=== PATIENT | male | born 1950 | race Caucasian/White ===

== ENCOUNTER 2016-08-02 12:21 | Outpatient (CLI) | payer OTHER | END 2016-08-02 12:22 | disposition home or self-care (01) | DX: E11.9 Type 2 diabetes mellitus without complications (principal) ==

== ENCOUNTER 2017-10-06 12:53 | Outpatient (CLI) | payer OTHER ==
--- NOTE | 2017-10-06 13:36 | XRAY Report ---
Procedure Date: 10/06/2017 Accession Number: [id number] / [id number] Procedure: XR - Shoulder 3 View RT CPT Code: FULL RESULT: EXAM: Shoulder 3 View RT DATE: 10/06/2017 1:15 PM CLINICAL HISTORY: PAIN AFTER FALL COMPARISON: None. TECHNIQUE: 3 views. FINDINGS: Bones: No fracture or bone lesion. Joints: The glenohumeral and acromioclavicular joints are anatomically aligned. Mild degenerative change glenohumeral and acromioclavicular articulation. Soft tissues: The included hemithorax is unremarkable. No soft tissue calcification. IMPRESSION: Degenerative change right shoulder without superimposed acute findings RADIA
== END 2017-10-06 12:54 | disposition home or self-care (01) ==
LOC: DI 12:53
PROVIDERS: ATTEND Internal Medicine
DX: M19.011 Primary osteoarthritis, right shoulder (principal)

== ENCOUNTER 2018-08-03 18:12 | Outpatient (CLI) | payer OTHER ==
[2018-08-03 18:26] LABS: BASOPHILS # (AUTO) 0.1 10^3/uL (0.0-0.1); BASOPHILS % (AUTO) 1.1 %; EOSINOPHILS # (AUTO) 0.6 10^3/uL (0.0-0.7); EOSINOPHILS % (AUTO) 4.3 %; HGB - HEMOGLOBIN 14.1 g/dL (14.0-18.0); LYMPHOCYTES # (AUTO) 2.8 10^3/uL (1.5-3.5); LYMPHOCYTES % (AUTO) 21.7 %; MEAN CORPUSCULAR HEMOGLOBIN 29.1 pg (27.0-31.0); MEAN CORPUSCULAR HGB CONC 32.3 g/dL (32.0-36.0); MEAN PLATELET VOLUME 9.4 fL (7.4-11.4); MONOCYTES # (AUTO) 0.9 10^3/uL (0.0-1.0); MONOCYTES % (AUTO) 6.6 %; NEUTROPHILS # (AUTO) 8.5 10^3/uL (1.5-6.6); NEUTROPHILS % (AUTO) 66.3 %; PLT - PLATELET COUNT 168 10^3/uL (130-450); RED BLOOD COUNT 4.85 10^6/uL (4.70-6.10); RED CELL DISTRIBUTION WIDTH 15.6 % (12.0-15.0); WHITE BLOOD COUNT 12.9 x10^3/uL (4.8-10.8)
[2018-08-03 18:36] LABS: ALBUMIN 4.3 g/dL (3.2-5.5); ALBUMIN/GLOBULIN RATIO 1.6 (1.0-2.2); BILIRUBIN,TOTAL 0.5 mg/dL (0.2-1.0); CALCIUM 9.1 mg/dL (8.5-10.3); CREATININE 1.1 mg/dL (0.6-1.2)
[2018-08-03 18:48] LABS: HB2 TOTAL 15.4 g/dL; HEMOGLOBIN A1C 0.57 g/dL; HEMOGLOBIN A1C % 5.5 % (4.6-6.2)
== END 2018-08-03 18:13 | disposition home or self-care (01) ==
LOC: LAB 18:12
PROVIDERS: ATTEND Orthopaedic Surgery Sports Medicine
DX: E11.9 Type 2 diabetes mellitus without complications (principal); Z79.899 Other long term (current) drug therapy
CPT/HCPCS: 36415; 80053; 83036; 85025

== ENCOUNTER 2018-08-16 11:56 | Outpatient (CLI) | payer OTHER ==
--- NOTE | 2018-08-17 15:30 | XRAY Report ---
Reason: EXPOSURE TO ASBESTOS Procedure Date: 08/16/2018 Accession Number: [id number] / [id number] Procedure: XR - Chest 2 View X-Ray CPT Code: 94801 FULL RESULT: EXAM: CHEST RADIOGRAPHY EXAM DATE: 08/16/2018 12:36 PM. CLINICAL HISTORY: History of asbestos exposure. COMPARISON: None. TECHNIQUE: 2 views. FINDINGS: Lungs/Pleura: No focal opacities evident. No pleural effusion. No pneumothorax. Normal volumes. No pleural calcifications are detected. Mediastinum: Heart and mediastinal contours are unremarkable. Other: None. IMPRESSION: No pleural calcifications or large lung mass. RADIA
== END 2018-08-16 11:57 | disposition home or self-care (01) ==
LOC: DI 11:56
PROVIDERS: ATTEND Internal Medicine
DX: Z77.090 Contact with and (suspected) exposure to asbestos (principal)
CPT/HCPCS: 71046

== ENCOUNTER 2018-08-22 11:30 | Day surgery (SDC) | payer OTHER ==
[~2018-08-22 11:30] MED LIST: BUPIVACAINE 0.25%-EPI 1:200000 PF 30 ML VIAL ONE; EPINEPHrine 1 MG/ML AMP ONE
[2018-08-22] MEDS ORDERED: LACTATED RINGERS 1,000 ML IV ONE ×2 (11:33→11:35)
--- NOTE | 2018-08-22 12:04 | ANESTHESIA ---
Pre-Anesthesia VS, & Labs - Diagnosis right rotator cuff tear - Procedure right shoulder arthroscopy with rotator cuff repair, subacromial decompression Vital Signs: Temp Pulse Resp BP Pulse Ox 36.9 C 72 14 109/76 99 08/22/18 11:35 08/22/18 11:35 08/22/18 11:35 08/22/18 11:35 08/22/18 11:35 Height 6 ft 3 in Weight (kg) 143.2 kg Body Mass Index 42.3 - NPO >8 hours - Lab Results Current Lab Results: Laboratory Tests 08/22/18 11:57: POC Whole Bld Glucose 92 Home Medications and Allergies Home Medications: Ambulatory Orders Aspirin 0.5 tab PO DAILY 08/13/18 Cyanocobalamin (Vitamin B-12) [Vitamin B-12 (1000 mcg sublingual)] 1,000 mcg SL DAILY 08/13/18 Escitalopram Oxalate 10 mg PO DAILY 08/13/18 Febuxostat [Uloric] 40 mg PO DAILY 08/13/18 Ibuprofen [Motrin] 800 mg PO Q8H PRN 08/13/18 Mineral Oil/Petrolatum,White [Hydrocerin Cream] 1 applic TP ONCE 08/13/18 Trazodone HCl 50 mg PO QPM 08/13/18 Active Medications Cefazolin Sodium 3 gm/ Sodium (Chloride) 100 mls @ 200 mls/hr IV ONCE ONE Stop: 08/22/18 12:59 Ascorbic Acid [Vitamin C] 1,000 mg PO BID 04/09/15 Atorvastatin [Lipitor] 40 mg PO QPM 04/09/15 Cholecalciferol (Vitamin D3) [Vitamin D3] 2,000 unit PO DAILY 04/09/15 Gabapentin 900 mg PO TID 04/09/15 Insulin Glargine,Hum.rec.anlog [Lantus] 120 unit SQ BID 04/09/15 Lisinopril 20 mg PO DAILY 04/09/15 metFORMIN [Glucophage] 500 mg PO BIDWM 04/09/15 Aspirin 0.5 tab PO DAILY 08/13/18 Cyanocobalamin (Vitamin B-12) [Vitamin B-12 (1000 mcg sublingual)] 1,000 mcg SL DAILY 08/13/18 Escitalopram Oxalate 10 mg PO DAILY 08/13/18 Febuxostat [Uloric] 40 mg PO DAILY 08/13/18 Ibuprofen [Motrin] 800 mg PO Q8H PRN 08/13/18 Mineral Oil/Petrolatum,White [Hydrocerin Cream] 1 applic TP ONCE 08/13/18 Trazodone HCl 50 mg PO QPM 08/13/18 Allergies/Adverse Reactions: Allergies Allergy/AdvReac Type Severity Reaction Status Date / Time allopurinol Allergy Unknown Verified 08/13/18 15:16 benzoin Allergy Rash Verified 08/13/18 15:16 Anes History & Medical History - Anesthetic History Anesthesia Complications: reports: No previous complications Family history of Anesthesia Complications: Denies Family history of Malignant Hyperthermia: Denies - Medical History Cardiovascular: reports: Hypertension, High cholesterol Pulmonary: reports: Other Gastrointestinal: reports: Hepatitis Urinary: reports: None Musculoskeletal: reports: Osteoarthritis, Gout, Chronic back pain, Other Endocrine/Autoimmune: reports: Type 2 diabetes Skin: reports: None Smoking Status: Former smoker - Surgical History General: Other Eyes Ears Nose Throat (EENT): Tonsil/Adenoidectomy Orthopedic: Arthroscopic surgery, Other Exam General: Alert, Oriented x3, Cooperative, No acute distress Dental: Other (implant) Mouth Openin Fingerbreadth Neck Mobility: Normal Mallampati classification: II Thyromental Distance: greater than 6 cm Respiratory: Lungs clear, Normal breath sounds, No respiratory distress, No accessory muscle use Cardiovascular: Regular rate, Normal S1, Normal S2, No murmurs Plan Anesthesia Type: General, Interscalene Block Consent for Procedure(s) Verified and Reviewed: Yes Code Status: Attempt Resuscitation ASA classification: 2-Mild systemic disease Is this case an emergency?: No
[2018-08-22] MEDS ORDERED: BUPIVACAINE 0.5%-EPI 1:200000 PF 30 ML VIAL ONE (12:24)
[2018-08-22] MEDS ORDERED: ceFAZolin 3 GM in SODIUM CHLORIDE 0.9% 100ML 100 ML IV ONE (12:30)
[2018-08-22] MEDS ORDERED: ACETAMINOPHEN 1,000 MG/100 ML 100 ML IV ONE (15:06)
[2018-08-22] MEDS ORDERED: DEXAMETHASONE 4 MG/ML VIAL IVP ONE (15:06)
[2018-08-22] MEDS ORDERED: ONDANSETRON 4 MG/2 ML VIAL IVP ONE (15:06)
[2018-08-22] MEDS ORDERED: MIDAZOLAM 2 MG/2 ML VIAL IVP ONE (15:06)
[2018-08-22] MEDS ORDERED: fentaNYL 100 MCG/2 ML VIAL IVP ONE (15:06)
[2018-08-22] MEDS ORDERED: ceFAZolin 1 GM VIAL IV ONE (15:06)
--- NOTE | 2018-08-22 15:16 | IMMEDIATE POSTOPERATIVE NOTE ---
Immediate Postoperative Note - Procedure Note Procedure Date: 08/22/18 Pre-Op Diagnosis: Right rotator cuff tear, subacromial impingement Procedure: Right arthroscopic rotator cuff repair, arthroscopic subacromial decompress Post-Op Diagnosis: Same Primary Surgeon: Victor Hugo LAROSE Station Installer And Repairer: ROSALBA Anesthesia Type: General ET tube, Local, Regional block Findings: As above Complications: No complications Estimated Blood Loss (in cc): 50 Plan of Care: Patient tolerated procedure well instrument and sponge counts correct patient is transferred to recovery room in stable condition. Patient will proceed with postoperative right shoulder rotator cuff repair protocol.
[2018-08-22] MEDS ORDERED: oxyCODONE 5 MG TABLET PO PRN (15:18)
[2018-08-22 16:32] VITALS: BP 125/62
--- NOTE | 2018-08-24 02:47 | OPERATIVE REPORT ---
DATE OF SERVICE: 08/22/2018 Physician: Deandre Salamanca MD SURGEON: Deandre Salamanca MD. MATERIALS ANALYST: None. ANESTHESIOLOGIST: James Bahena MD. ANESTHESIA: General endotracheal anesthesia as well as right side ultrasound-guided interscalene blo ck as well as 20 mL of 0.25% Marcaine with epinephrine local. PREOPERATIVE DIAGNOSES 1. Right shoulder rotator cuff tear. 2. Right shoulder subacromial impingement. POSTOPERATIVE DIAGNOSES 1. Right shoulder rotator cuff tear. 2. Right shoulder subacromial impingement. PROCEDURE 1. Right shoulder arthroscopic rotator cuff repair. 2. Right shoulder arthroscopic subacromial decompression, conversion of type I acromion. PREOPERATIVE ANTIBIOTICS: 3 grams of weight-based IV Ancef. ESTIMATED BLOOD LOSS: Less than 50 mL. FLUIDS: 500 mL lactated Ringer's. COMPRESSION DEVICE: Bilateral calf SCD boots. ORTHOPEDIC IMPLANTS: Arthrex triple-loaded Bio[employer]posite anchors x2. HISTORY OF PRESENT ILLNESS AND INDICATIONS: Patient is a 68-year-old gentleman who is known to have a right shoulder rotator cuff tear. He is indicated for operative treatment. Please see previous cl inic discussion for risks, benefits, and alternatives. These were again highlighted in the preoperat david care unit. Patient and the patient's 's questions were answered. Patient verbalized his wis h to proceed with operative treatment. Informed consent was given. INTRAOPERATIVE FINDINGS: Patient noted to have a full-thickness supraspinatus tear, long head of bic eps okay, other rotator cuff tendons okay, minimal chondromalacia and some mild to moderate fraying o f the labrum. Subacromial space shows some thickened bursal tissue and downsloping anterior aspect o f the acromion. PROCEDURE IN DETAIL: On 08/22/2018 patient is identified in the preoperative care unit and identifie s his right shoulder as the operative site. This is signed by the operating surgeon. The patient re ceived preoperative weight-based IV Ancef and is brought to the operating room after ultrasound-guide d interscalene block provided on the right side after site identification. The patient is placed supine on the operating table. General anesthesia is administered. The patien t is placed in the left side-down lateral decubitus position with appropriately placed axillary roll to avoid encumbrance of the axilla. Head, neck, and extremities placed in anatomically comfortable a nd safe position to avoid peripheral nerve stretch and compression. At this time, surgical pause identifies the right shoulder as the operative site and then the right keri hargrove is draped out and then pre-scrubbed with Betadine solution and then alcohol, and then prepped and draped in the usual sterile fashion using chlorhexidine solution. A combination of 10 or 15 humberto nds of traction are used. Site identification and pause identifies the right shoulder, at which poin t local anesthetic is infused laterally, posteriorly and anteriorly. A small stab incision is made posteriorly. Scope was introduced into the glenohumeral joint. Outsid e-in technique brings in an anterior portal and rotator cuff is examined from underneath with debride ment and then marking with a PDS suture using a spinal needle. At this point, attention directed to the subacromial space. At this point, subacromial decompression is performed using the shaving devic e, arthroscopic heating device with appropriate flow to avoid thermal injury, and then ulysses to conver t to a type I acromion. Once this is done, the rotator cuff is further examined and the edge of it i s debrided sharply with a meniscal basket through a lateral incision. At this point, the rotator cuf f footprint is debrided, first with a shaver, and then with a ulysses to debride tissue so that it is fr eshly bleeding, but maintains its integrity. After preparation, one anterior and one posterior sutur e anchor are placed with a total of 5 simple sutures and the posteriormost one was a horizontal mattr ess to decrease the dog ear appearance. These are then tied sequentially from back to front, thereby re-opposing the rotator cuff to near anatomic footprint. The suture limbs are cut and the probe is used to test the rotator cuff with range of motion, which was noted to be stable and in good position . At this point, subacromial space is copiously irrigated, hemostasis achieved and then instruments were removed. Local anesthetic infused around the incisions. Incisions are closed using interrupted nylon sutures. Skin is washed and dried. Xeroform dressing is applied. Micropore tape is applied after 4 x 4's. The patient is placed in an abduction pillow sling. The patient tolerated the procedure well. Instrument and sponge counts correct. The patient is rader sferred to recovery room in stable condition. The patient will follow standard postoperative right keri hargrove rotator cuff repair protocol. The patient's is contacted in the waiting room and case is discussed. Her questions are answere d, arthroscopic photos are reviewed and her questions are answered. She verbalized understanding and satisfaction with plan as outlined. TD: 08/23/2018 18:08
== END 2018-08-22 11:31 | disposition home or self-care (01) ==
LOC: SDS 11:30
PROVIDERS: ATTEND Orthopaedic Surgery Sports Medicine
PROC: 0LQ14ZZ Repair Right Shoulder Tendon, Percutaneous Endoscopic Approach (ICD-10-PCS; principal; 2018-08-22 13:00)
PROC: 0RNJ4ZZ Release Right Shoulder Joint, Percutaneous Endoscopic Approach (ICD-10-PCS; 2018-08-22 13:00)
DX: M75.121 Complete rotator cuff tear or rupture of right shoulder, not specified as traumatic (principal); M75.41 Impingement syndrome of right shoulder; M62.511 Muscle wasting and atrophy, not elsewhere classified, right shoulder; M94.211 Chondromalacia, right shoulder; M25.811 Other specified joint disorders, right shoulder; I10 Essential (primary) hypertension; E11.40 Type 2 diabetes mellitus with diabetic neuropathy, unspecified; S31.809D Unspecified open wound of unspecified buttock, subsequent encounter; M10.9 Gout, unspecified; M19.90 Unspecified osteoarthritis, unspecified site; Z79.899 Other long term (current) drug therapy; Z79.82 Long term (current) use of aspirin; Z79.4 Long term (current) use of insulin; Z86.19 Personal history of other infectious and parasitic diseases; Z87.891 Personal history of nicotine dependence
CPT/HCPCS: 29826; 29827; C1713; J0131; J7120

== ENCOUNTER 2019-10-15 18:46 | Outpatient (CLI) | payer OTHER ==
--- NOTE | 2019-10-15 19:44 | Ultrasound Report ---
PROCEDURE: Duplex Ext Veins Right INDICATIONS: R LE EDEMA TECHNIQUE: Real-time imaging, as well as color and pulse Doppler interrogation, were performed of the lower extr emity deep veins from the inguinal ligament to the popliteal fossa. COMPARISON: None. FINDINGS: The deep veins are normally compressible, and free of intraluminal thrombus. Color and pu lse Doppler demonstrate normal phasic intraluminal flow. There is normal augmentation response to di stal compression maneuver. Posterior tibial and peroneal veins appear patent. IMPRESSION: Negative exam. No right lower extremity DVT identified. Reviewed by: Anupam Dawson MD on 10/15/2019 7:43 PM PDT Approved by: Anupam Dawson MD on 10/15/2019 7:43 PM PDT Station ID: [id number]
== END 2019-10-15 18:47 | disposition home or self-care (01) ==
LOC: DI 18:46
PROVIDERS: ATTEND Internal Medicine
DX: R60.0 Localized edema (principal)

== ENCOUNTER 2019-10-17 08:00 | Outpatient (CLI) | payer OTHER | END 2019-10-17 23:59 | disposition home or self-care (01) | LOC: LAB.R 08:00 | PROVIDERS: ATTEND Internal Medicine | DX: R19.7 Diarrhea, unspecified (principal) | CPT/HCPCS: 81599; 83630; 87045; 87046; 87177; 87209; 87329; 87493 ==

== ENCOUNTER 2020-05-01 07:26 | Outpatient (CLI) | payer OTHER ==
--- NOTE | 2020-05-01 17:14 | XRAY Report ---
PROCEDURE: Knee Standing RT INDICATIONS: RIGHT KNEE PAIN TECHNIQUE: 3 views of the right knee, and 2 views of the left knee. COMPARISON: None. FINDINGS: Bones: No acute fractures or dislocations. No suspicious bony lesions. Joint spaces appear normal with weightbearing. Moderate osteoarthritic degenerative changes noted in the medial and patellofemor al conference of the right knee and left knee. Mild osteophytic degenerative changes noted in the lat eral compartments of the right knee and left knee. Soft tissues: No knee joint effusions. No suspicious soft tissue calcification. IMPRESSION: Bilateral knee arthritis. Reviewed by: Randa Ramos MD, PhD on 05/01/2020 5:13 PM PST Approved by: Randa Ramos MD, PhD on 05/01/2020 5:13 PM PST Station ID: [id number]
== END 2020-05-01 23:59 | disposition home or self-care (01) ==
LOC: DI.N 07:26
PROVIDERS: ATTEND Physician Assistant
DX: M17.0 Bilateral primary osteoarthritis of knee (principal)

== ENCOUNTER 2021-01-25 13:47 | Outpatient (CLI) | payer OTHER ==
--- NOTE | 2021-01-25 16:26 | XRAY Report ---
PROCEDURE: Hand 3 View RT INDICATIONS: RIGHT HAND PAIN TECHNIQUE: 3 views of the hand(s) acquired. COMPARISON: None FINDINGS: Bones: No fractures or dislocations. Mild osteoarthritic changes along radial aspect of right wrist and throughout the interphalangeal joints are seen. Subtle radiolucency involving dorsal and ulnar a spect of fifth metacarpal head is seen. Similar radiolucency involving ulnar aspect of second and thi rd metacarpal heads also noted. No suspicious bony lesions. Soft tissues: No suspicious soft tissue calcifications. IMPRESSION: No right hand fracture or dislocation. Osteoarthritic changes are noted throughout right hand and wri st as above. Subtle radiolucency involving second, third and fifth metacarpal heads which could repre sent erosion secondary to inflammatory arthropathy suggest clinical correlation. Reviewed by: Femi Tracy MD on 01/25/2021 4:24 PM PDT Approved by: Femi Tracy MD on 01/25/2021 4:24 PM PDT Station ID: [id number]
== END 2021-01-25 13:48 | disposition home or self-care (01) ==
LOC: DI 13:47
PROVIDERS: ATTEND Internal Medicine
DX: M19.041 Primary osteoarthritis, right hand (principal); R93.6 Abnormal findings on diagnostic imaging of limbs

== ENCOUNTER 2021-04-16 09:09 | Outpatient (CLI) | payer OTHER ==
--- NOTE | 2021-04-16 10:36 | XRAY Report ---
PROCEDURE: Hip w/Pelvis 1V LT INDICATIONS: LEFT HIP PAIN TECHNIQUE: AP pelvis with lateral view(s) of the left hip(s). COMPARISON: None. FINDINGS: This study is limited by body habitus. Bones: No fractures or dislocations. Pelvic ring appears intact. No suspicious bony lesions. There is moderate superior joint space narrowing seen involving both hips. There is associated remode ling change, with subchondral sclerosis and osteophyte formation. Soft tissues: The visualized bowel gas pattern is normal. No suspicious soft tissue calcifications. IMPRESSION: No displaced fractures are seen on these limited plain films. Moderate bilateral hip degenerative change. If it would be helpful for clinical management decision making, please consider a dedicated hip MRI f or further evaluation (assuming that there is no contraindication). This should be performed accordi ng to the arthrogram protocol, if there is strong clinical concern for a labral abnormality. Reviewed by: Ortiz Davenport MD on 04/16/2021 9:35 AM [facility] Approved by: Ortiz Davenport MD on 04/16/2021 9:35 AM [facility] Station ID: [id number]
--- NOTE | 2021-04-16 10:38 | XRAY Report ---
PROCEDURE: Knee 3 View BILAT INDICATIONS: BILATERAL KNEE PAIN TECHNIQUE: 3 views of each knee were acquired. COMPARISON: Correlation is made with prior right knee plain films, 05/01/2020. FINDINGS: Bones: No fractures or dislocations. No suspicious bony lesions. There is moderate to severe medial femorotibial joint space narrowing on the right, with moderate med ial femorotibial joint space narrowing on the left, with associated degenerative change with subchond ral sclerosis and osteophyte formation. On the sunrise view, there is mild to moderate right-sided patellofemoral joint space narrowing, with associated remodeling changes, including spurs along the margins of the patella. There is minimal le ft patellofemoral joint space narrowing seen. Soft tissues: No joint effusion. No suspicious soft tissue calcifications. IMPRESSION: Osteoarthritic degenerative changes are seen, which are worst involving the medial femorotibial lalito rtment of the right knee. If it would be helpful for clinical management decision making, please consider a dedicated, schedule d knee MRI for further evaluation (assuming that there is no contraindication). Reviewed by: Ortiz Davenport MD on 04/16/2021 9:37 AM [facility] Approved by: Ortiz Davenport MD on 04/16/2021 9:37 AM [facility] Station ID: [id number]
== END 2021-04-16 09:10 | disposition home or self-care (01) ==
LOC: DI 09:09
PROVIDERS: ATTEND Internal Medicine
DX: M17.0 Bilateral primary osteoarthritis of knee (principal); M16.0 Bilateral primary osteoarthritis of hip

== ENCOUNTER 2021-07-30 12:08 | Outpatient (CLI) | payer OTHER ==
--- NOTE | 2021-07-30 13:21 | XRAY Report ---
PROCEDURE: Hip w/Pelvis 2-3V RT INDICATIONS: PX AFTER FALL TECHNIQUE: AP pelvis with lateral view(s) of the right hip(s). COMPARISON: None. FINDINGS: Image quality limited by patient body habitus. Bones: No fractures or dislocations. Pelvic ring appears intact. No suspicious bony lesions. Moder ate osteophytic degenerative changes noted in the right hip. Soft tissues: The visualized bowel gas pattern is normal. No suspicious soft tissue calcifications. IMPRESSION: Diagnostic sensitivity study limited secondary to patient body habitus. No displaced fracture. No acute osseous lesion. If there persistent symptoms or continued clinical co ncern for pathology, then repeat plain film radiographs (7-10 days) or advanced imaging (CT, MR, bone scan) should be considered for further evaluation. Reviewed by: Randa Ramos MD, PhD on 07/30/2021 1:20 PM PDT Approved by: Randa Ramos MD, PhD on 07/30/2021 1:20 PM PDT Station ID: [id number]
--- NOTE | 2021-07-30 13:22 | XRAY Report ---
PROCEDURE: Lumbar Spine 2 View INDICATIONS: PAIN AFTER FALL TECHNIQUE: 2 views of the lumbar spine were acquired. COMPARISON: None. FINDINGS: Bones: 5 [id number] vertebrae are present. There is approximate 3 mm of L1-L2 retrolisthesis. There is approximately 2 mm of L2 and L3 and L3-L4 retrolisthesis. No vertebral body compression frac tures. No suspicious bony lesions. Mild degenerative changes noted throughout the lumbar spine. Mild facet arthropathy noted in the lower lumbar spine. Soft tissues: Overlying bowel gas pattern is normal. No suspicious soft tissue calcifications. IMPRESSION: 1. Multilevel degenerative disc disease. 2. Multilevel facet arthropathy. 3. No fracture. No acute osseous lesion. If there is continued clinical concern for pathology, then M RI should be considered for further evaluation. Reviewed by: Randa Ramos MD, PhD on 07/30/2021 1:21 PM PDT Approved by: Randa Ramos MD, PhD on 07/30/2021 1:21 PM PDT Station ID: [id number]
== END 2021-07-30 12:09 | disposition home or self-care (01) ==
LOC: DI 12:08
PROVIDERS: ATTEND Internal Medicine
DX: M25.551 Pain in right hip (principal); M43.16 Spondylolisthesis, lumbar region; M47.816 Spondylosis without myelopathy or radiculopathy, lumbar region; M51.36 Other intervertebral disc degeneration, lumbar region

== ENCOUNTER 2022-01-12 08:00 | Outpatient (CLI) | payer OTHER ==
[2022-01-12 16:15] LABS: BASOPHILS # (AUTO) 0.1 10^3/uL (0.0-0.1); BASOPHILS % (AUTO) 0.6 %; EOSINOPHILS # (AUTO) 0.3 10^3/uL (0.0-0.7); EOSINOPHILS % (AUTO) 3.3 %; HCT - HEMATOCRIT 43.2 % (42.0-52.0); HGB - HEMOGLOBIN 14.2 g/dL (14.0-18.0); LYMPHOCYTES # (AUTO) 2.2 10^3/uL (1.5-3.5); MEAN CORPUSCULAR HEMOGLOBIN 31.2 pg (27.0-31.0); MEAN CORPUSCULAR HGB CONC 32.9 g/dL (32.0-36.0); MEAN CORPUSCULAR VOLUME 94.9 fL (80.0-94.0); MEAN PLATELET VOLUME 12.4 fL (7.4-11.4); MONOCYTES # (AUTO) 0.8 10^3/uL (0.0-1.0); MONOCYTES % (AUTO) 8.6 %; NEUTROPHILS # (AUTO) 5.4 10^3/uL (1.5-6.6); NEUTROPHILS % (AUTO) 61.8 %; PLT - PLATELET COUNT 142 10^3/uL (130-450); RED BLOOD COUNT 4.55 10^6/uL (4.70-6.10); WHITE BLOOD COUNT 8.7 x10^3/uL (4.8-10.8)
[2022-01-12 16:36] LABS: BILIRUBIN,URINE NEGATIVE (NEGATIVE); GLUCOSE, URINE (UA) NEGATIVE (NEGATIVE); KETONES,URINE (UA) NEGATIVE (NEGATIVE); LEUKOCYTE ESTERASE, URINE NEGATIVE (NEGATIVE); NITRITE,URINE NEGATIVE (NEGATIVE); OCCULT BLOOD,URINE NEGATIVE (NEGATIVE); PROTEIN,URINE NEGATIVE (NEGATIVE); UROBILINOGEN,URINE 0.2 (NORMAL) E.U./dL (NORMAL)
[2022-01-12 16:37] LABS: CLARITY,URINE CLEAR (CLEAR)
[2022-01-12 16:38] LABS: ALBUMIN 3.9 g/dL (3.2-5.5); ALBUMIN/GLOBULIN RATIO 1.7 (1.0-2.2); ALKALINE PHOSPHATASE 66 IU/L (42-121); ALT ALANINE AMINOTRANSFERASE 28 IU/L (10-60); AST ASPARTATE AMINOTRANSFERASE 26 IU/L (10-42); BILIRUBIN,TOTAL 0.8 mg/dL (0.2-1.0); BUN - BLOOD UREA NITROGEN 22 mg/dL (6-20); CALCIUM 9.2 mg/dL (8.5-10.3); CARBON DIOXIDE - CO2 25 mmol/L (21-32); CHLORIDE 102 mmol/L (101-111); CHOL/HDL RATIO 3.2 (<5.0); CHOLESTEROL 101 mg/dL; CREATININE 0.9 mg/dL (0.6-1.2); GFR - MDRD 83 (>89); GLUCOSE 71 mg/dL (70-100); HDL CHOLESTEROL 32 mg/dL; LDL CHOLESTEROL,CALCULATED 29 mg/dL; LDL/HDL RATIO 0.9 (<3.6); POTASSIUM 4.6 mmol/L (3.5-5.0); SODIUM 138 mmol/L (135-145); TOTAL PROTEIN 6.2 g/dL (6.7-8.2); TRIGLYCERIDES 201 mg/dL; URIC ACID 5.3 mg/dL (2.6-7.2); VLDL CHOLESTEROL 40 mg/dL
[2022-01-12 16:47] LABS: THYROID STIMULATING HORMONE 1.63 uIU/mL (0.34-5.60)
[2022-01-12 16:48] LABS: CREATININE,URINE 146.9 mg/dL; MICROALBUM/CREATININE RATIO,UR 3.4 ug/mg (<30.0); MICROALBUMIN,URINE 0.5 mg/dL (0-300.0)
[2022-01-12 20:53] LABS: ESTIMATED AVERAGE GLUCOSE 114 mg/dL (70-100); HEMOGLOBIN A1c% 5.6 % (4.27-6.07)
== END 2022-01-12 23:59 | disposition home or self-care (01) ==
LOC: LAB.R 08:00
PROVIDERS: ATTEND Internal Medicine
DX: E11.9 Type 2 diabetes mellitus without complications (principal); M10.9 Gout, unspecified; M54.50 Low back pain, unspecified; G62.9 Polyneuropathy, unspecified; M48.00 Spinal stenosis, site unspecified; Z79.899 Other long term (current) drug therapy
CPT/HCPCS: 80053; 80061; 81001; 81003; 82043; 82570; 82607; 83036; 83721; 84443; 84550; 85025; 87086

== ENCOUNTER 2022-05-09 13:33 | Outpatient (CLI) | payer OTHER | END 2022-05-09 13:34 | disposition critical access hospital (66) | LOC: EMS 13:33 | DX: R47.81 Slurred speech (principal); R53.1 Weakness; R29.810 Facial weakness; E11.649 Type 2 diabetes mellitus with hypoglycemia without coma | CPT/HCPCS: A0425; A0427 ==

== ENCOUNTER 2022-05-09 13:48 | Emergency (ER) | payer OTHER ==
[2022-05-09] MEDS ORDERED: DEXTROSE 50% ABBOJECT 25 GM/50 ML SYRINGE IVP STA (14:08)
[2022-05-09 14:19] LABS: BASOPHILS % (AUTO) 0.4 %; EOSINOPHILS # (AUTO) 0.1 10^3/uL (0.0-0.7); EOSINOPHILS % (AUTO) 0.6 %; HCT - HEMATOCRIT 47.1 % (42.0-52.0); HGB - HEMOGLOBIN 14.7 g/dL (14.0-18.0); LYMPHOCYTES # (AUTO) 1.5 10^3/uL (1.5-3.5); LYMPHOCYTES % (AUTO) 16.8 %; MEAN CORPUSCULAR HEMOGLOBIN 29.9 pg (27.0-31.0); MEAN CORPUSCULAR HGB CONC 31.2 g/dL (32.0-36.0); MEAN CORPUSCULAR VOLUME 95.9 fL (80.0-94.0); MEAN PLATELET VOLUME 11.3 fL (7.4-11.4); MONOCYTES # (AUTO) 0.4 10^3/uL (0.0-1.0); MONOCYTES % (AUTO) 4.8 %; NEUTROPHILS # (AUTO) 6.9 10^3/uL (1.5-6.6); NEUTROPHILS % (AUTO) 77.1 %; PLT - PLATELET COUNT 142 10^3/uL (130-450); RED BLOOD COUNT 4.91 10^6/uL (4.70-6.10); RED CELL DISTRIBUTION WIDTH 14.4 % (12.0-15.0)
--- NOTE | 2022-05-09 14:30 | ED Physician Documentation ---
History of Present Illness - Stated complaint Stated Complaint: AMS - Chief complaint Chief Complaint: General - History obtained from History obtained from: Patient, Family - Additonal information Additional information: Pt is a 72-year-old male with a history of insulin-dependent diabetes presenting for evaluation of altered mental status. was not able to wake him up this morning for an appointment and when EMS arrived they noted he had a low blood glucose. They gave him a dose of glucagon and were unable to start an IV. Patient states that he took 240 units of insulin glargine Last night around midnight. He states that this is the dose written for him. He states He ate normally last night with a dinner of chicken and vegetables.Patient states an alarm clock set for a mental health appointment this morning and slept through it. Independent history was obtained from his .She sleeps in a separate bedroom. She noticed that he was not up early this afternoon for his PT appointment and try to wake him up and was having difficulty. Review of Systems Constitutional: denies: Fever Cardiac: denies: Chest pain / pressure Respiratory: denies: Dyspnea GI: denies: Abdominal Pain : denies: Dysuria Neurologic: denies: Headache PD PAST MEDICAL HISTORY - Past Medical History Cardiovascular: Hypertension, High cholesterol Respiratory: Other Endocrine/Autoimmune: Type 2 diabetes GI: Hepatitis : None HEENT: Chronic vision loss, Glaucoma, Chronic sinusitis Psych: Other Musculoskeletal: Osteoarthritis, Gout, Chronic back pain, Other Derm: None - Past Surgical History General: Other Ortho: Arthroscopic surgery, Other HEENT: Tonsil/Adenoidectomy - Present Medications Home Medications: Ambulatory Orders Medication Instructions Recorded Confirmed Ascorbic Acid [Vitamin C] 1,000 mg PO BID 04/09/15 08/22/18 Atorvastatin [Lipitor] 40 mg PO QPM 04/09/15 08/22/18 Cholecalciferol (Vitamin D3) 2,000 unit PO DAILY 04/09/15 08/22/18 [Vitamin D3] Gabapentin 900 mg PO TID 04/09/15 08/22/18 Insulin Glargine,Hum.rec.anlog 120 unit SQ BID 04/09/15 08/22/18 [Lantus] Lisinopril 20 mg PO DAILY 04/09/15 08/22/18 metFORMIN [Glucophage] 500 mg PO BIDWM 04/09/15 08/22/18 Aspirin 0.5 tab PO DAILY 08/13/18 08/22/18 Cyanocobalamin (Vitamin B-12) 1,000 mcg SL DAILY 08/13/18 08/22/18 [Vitamin B-12 (1000 mcg sublingual)] Escitalopram Oxalate 10 mg PO DAILY 08/13/18 08/22/18 Febuxostat [Uloric] 40 mg PO DAILY 08/13/18 08/22/18 Ibuprofen [Motrin] 800 mg PO Q8H PRN 08/13/18 08/13/18 Lanolin Alcohol/Mo/W.pet/[place] 1 applic TP ONCE 08/13/18 08/13/18 [Hydrocerin Cream] Trazodone HCl 50 mg PO QPM 08/13/18 08/22/18 - Allergies Allergies/Adverse Reactions: Allergies Allergy/AdvReac Type Severity Reaction Status Date / Time allopurinol Allergy Mild Rash Verified 05/09/22 14:02 benzoin Allergy Rash Verified 05/09/22 14:02 - Social History Smoking Status: Former smoker PD ED PE NORMAL - General General: Alert and oriented X 3, No acute distress, Well developed/nourished - HEENT HEENT: Atraumatic, Moist mucous membranes, Pharynx benign - Neck Neck: Supple, no meningeal sign - Cardiac Cardiac: RRR - Respiratory Respiratory: No respiratory distress - Abdomen Abdomen: Soft, Non tender - Derm Derm: Warm and dry - Neuro Neuro: Alert and oriented X 3, size cutter 2-12 intact, No motor deficit, No sensory deficit, Normal speech Results - Vitals Vitals: Vital Signs - 24 hr 05/09/22 05/09/22 05/09/22 13:59 14:17 15:06 Temperature 36.1 C L Heart Rate 73 71 72 Respiratory 17 21 16 Rate Blood Pressure 186/98 H 168/84 H 144/108 H O2 Saturation 100 99 99 05/09/22 05/09/22 05/09/22 15:56 17:24 17:25 Temperature Heart Rate 73 73 Respiratory 19 18 18 Rate Blood Pressure 116/87 H 165/70 H 165/70 H O2 Saturation 98 100 100 Oxygen O2 Source Room air - EKG (time done) 1414 Rate: Rate (enter#) (63) Rhythm: NSR Intervals: RBBB, Other (LAFB) QRS: LVH Ischemia: No: ST elevation c/w ischemia - Labs Labs: Laboratory Tests 05/09/22 05/09/22 05/09/22 14:12 14:12 14:20 WBC 9.0 RBC 4.91 Hgb 14.7 Hct 47.1 MCV 95.9 H MCH 29.9 MCHC 31.2 L RDW 14.4 Plt Count 142 MPV 11.3 Neut # (Auto) 6.9 H Lymph # (Auto) 1.5 [place] # (Auto) 0.4 Eos # (Auto) 0.1 Baso # (Auto) 0.0 Absolute Nucleated RBC 0.00 Nucleated RBC % 0.0 Sodium 137 Potassium 4.7 Chloride 100 L Carbon Dioxide 29 Anion Gap 8.0 BUN 15 Creatinine 1.0 Estimated GFR (MDRD) 74 L Glucose 235 H POC Whole Bld Glucose 81 Calcium 8.9 Total Bilirubin 0.6 AST 21 ALT 21 Alkaline Phosphatase 57 Total Protein 6.4 L Albumin 4.0 Globulin 2.4 Albumin/Globulin Ratio 1.7 05/09/22 05/09/22 05/09/22 14:41 15:18 16:14 WBC RBC Hgb Hct MCV MCH MCHC RDW Plt Count MPV Neut # (Auto) Lymph # (Auto) [place] # (Auto) Eos # (Auto) Baso # (Auto) Absolute Nucleated RBC Nucleated RBC % Sodium Potassium Chloride Carbon Dioxide Anion Gap BUN Creatinine Estimated GFR (MDRD) Glucose POC Whole Bld Glucose 113 H 189 H 180 H Calcium Total Bilirubin AST ALT Alkaline Phosphatase Total Protein Albumin Globulin Albumin/Globulin Ratio 05/09/22 17:05 WBC RBC Hgb Hct MCV MCH MCHC RDW Plt Count MPV Neut # (Auto) Lymph # (Auto) [place] # (Auto) Eos # (Auto) Baso # (Auto) Absolute Nucleated RBC Nucleated RBC % Sodium Potassium Chloride Carbon Dioxide Anion Gap BUN Creatinine Estimated GFR (MDRD) Glucose POC Whole Bld Glucose 206 H Calcium Total Bilirubin AST ALT Alkaline Phosphatase Total Protein Albumin Globulin Albumin/Globulin Ratio Procedures - General procedure General procedure: Patient was a difficult IV access with multiple failed attempts by EMS and nursing staff. Under ultrasound guidance I placed a 20-gauge into the left AC with no complications. It draws and flushes well. PD Medical Decision Making - ED course Complexity details: reviewed results, re-evaluated patient, d/w patient, d/w family ED course: Patient presenting for evaluation of altered mental status and found to have hypoglycemia. Suspect this is related to taking a very large dose of Long- acting insulin last night. Patient feels shaky but otherwise is awake and talking. I gave him 2 cups of apple juice before he placed an IV. He was also given D50, additional glasses of juice and a sandwich. Due to the large amount of insulin he will require monitoring for a few hours to make sure that he is maintaining his blood sugars.He does not have any focal deficits to suggest a stroke. No recent illnesses to suggest sepsis. No vomiting or diarrhea. His labs are reviewed.Glucose is elevated on his chemistry panel as this was obtained just immediately after receiving D50. History was also obtained from . Pt signed out to oncoming provider at shift change. Departure - Departure Disposition: 01 Home, Self Care Clinical Impression: Hypoglycemia due to insulin Condition: Stable Instructions: ED Diabetes Hypoglycemia Insulin React Follow-Up: Morenita Das MD [Primary Care Provider] - Comments: Your blood sugar was found to be very low today.This is likely from taking too much insulin last night. On our medication list we have that you should be taking insulin glargine 120 units twice daily. Do not take both doses at the same time. Tonight, only take 60 units. You can resume your regular doses tomorrow as long as you are eating. 120 units in the morning and 120 units in the evening. Please call Dr. Das's office today or early tomorrow morning for close follow-up and to make sure that you are using appropriate insulin doses. Please make sure you are eating proper meals and do not take your insulin if you are not eating. If you have any worsening symptoms please return to the emergency department. Discharge Date/Time: 05/09/22 17:25
[2022-05-09 14:32] LABS: ALBUMIN/GLOBULIN RATIO 1.7 (1.0-2.2); BILIRUBIN,TOTAL 0.6 mg/dL (0.2-1.0); CALCIUM 8.9 mg/dL (8.5-10.3); POTASSIUM 4.7 mmol/L (3.5-5.0); TOTAL PROTEIN 6.4 g/dL (6.7-8.2)
--- NOTE | 2022-05-09 15:12 | ED Physician Documentation ---
ED Addendum - Addendum Addendum: 05/09/22 15:[address] Taylor at shift change. Briefly this is a 72-year-old gentleman who took an excessive dose of insulin last night and had an episode of symptomatic hypoglycemia. At this time he is awake alert and oriented sitting up in bed and eating. Plan to keep him here for couple of hours with every hour Accu-Cheks to ensure no relapse.
[2022-05-09 17:25] VITALS: BP 165/70
== END 2022-05-09 17:25 | disposition home or self-care (01) ==
LOC: ED 13:48
DX: E11.649 Type 2 diabetes mellitus with hypoglycemia without coma (principal); I10 Essential (primary) hypertension; Z79.4 Long term (current) use of insulin; Z87.891 Personal history of nicotine dependence
CPT/HCPCS: 36415; 80053; 85025; 93005; 96374; 99284

== ENCOUNTER 2022-11-04 10:23 | Outpatient (CLI) | payer OTHER ==
--- NOTE | 2022-11-04 14:17 | XRAY Report ---
PROCEDURE: Hip w/Pelvis 2-3V LT INDICATIONS: Chronic left hip pain TECHNIQUE: AP pelvis with lateral view(s) of the left hip(s). COMPARISON: 07/30/2021 FINDINGS: Bones: Normal mineralization. No fractures or dislocation. Moderate osteoarthritic changes in both h ips and decreased femoral head neck offset bilaterally. No significant progression since the prior ex am. Soft tissues: No suspicious soft tissue calcifications or masses. IMPRESSION: 1. Moderate symmetric osteoarthritic changes without progression. 2. No acute process. Reviewed by: Aicha Melendez MD on 11/04/2022 2:16 PM PDT Approved by: Aicha Melendez MD on 11/04/2022 2:16 PM PDT Station ID: [id number]
== END 2022-11-04 10:24 | disposition home or self-care (01) ==
LOC: DI 10:23
PROVIDERS: ATTEND Internal Medicine
DX: M16.0 Bilateral primary osteoarthritis of hip (principal)

== ENCOUNTER 2023-03-03 12:23 | Outpatient (CLI) | payer OTHER ==
--- NOTE | 2023-03-03 15:35 | XRAY Report ---
PROCEDURE: Abdomen 1 View X-Ray INDICATIONS: CONSTIPATION TECHNIQUE: One view of the abdomen acquired. COMPARISON: None. FINDINGS: Surgical changes and devices: None. Bowel: Bowel gas pattern is normal. Moderate diffuse fecal load. Soft tissues: No suspicious abdominal calcifications. Visualized solid organ contours appear normal in size. Bones: No suspicious bony lesions. IMPRESSION: Moderate fecal load. Normal bowel gas pattern. Reviewed by: Jair Torres MD on 03/03/2023 3:33 PM PST Approved by: Jair Torres MD on 03/03/2023 3:33 PM PST Station ID: [id number]
== END 2023-03-03 12:24 | disposition home or self-care (01) ==
LOC: DI 12:23
PROVIDERS: ATTEND Physician Assistant
DX: K59.00 Constipation, unspecified (principal)